=== PATIENT | female | born 1970 | race Caucasian/White ===

== ENCOUNTER 2020-08-27 10:17 | Emergency (ER) | payer OTHER ==
[~2020-08-27] VITALS: Ht 165.1 cm; Wt 59.0 kg
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
[2020-08-27 10:23] VITALS: BP 124/80
[2020-08-27 13:00] VITALS: BP 131/79
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
--- NOTE | 2020-08-27 13:30 | NUR ---
ED Nurse Note: Patient taken to CT in stable condition and accompanied by [employer].
--- NOTE | 2020-08-27 13:43 | NUR ---
ED Nurse Note: Patient came back from CT and stable. [employer] at the bed side.
[2020-08-27] MEDS ORDERED: ACETAMINOPHEN500 M3 ORAL (14:10)
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
[2020-08-27 15:32] VITALS: BP 119/67
--- NOTE | 2020-08-27 15:32 | NUR ---
Note hort[place] in EDM - 08/27/20 at 1538 by [facility] ER DISCHARGE NOTE: Patient is cleared to be discharged per ERMD, pt is aox4, on room air, with stable vital signs. pt was given dc and prescription instructions, pt was able to verbalize understanding, pt id band removed. pt is able to ambulate with steady gait. pt took all belongings and left with [employer].
--- NOTE | 2020-08-27 15:32 | NUR ---
ER DISCHARGE NOTE: Patient is cleared to be discharged per ERMD, pt is aox4, on room air, with stable vital signs. pt was given dc and prescription instructions, Pt refused to sign DC papers. pt was able to verbalize understanding, pt id band removed. pt is able to ambulate with steady gait. pt took all belongings and left with [employer].
== END 2020-08-27 15:32 ==
LOC: EDBD 10:17 → EMR 10:30
DX: S00.83XA Contusion of other part of head, initial encounter (principal); Y04.0XXA Assault by unarmed brawl or fight, initial encounter; Y92.009 Unspecified place in unspecified non-institutional (private) residence as the place of occurrence of the external cause; M54.2 Cervicalgia; Z88.0 Allergy status to penicillin
CPT/HCPCS: 70486; 72125; 99284